=== PATIENT | female | born 1975 | race Two or more races ===

== ENCOUNTER 2018-05-29 06:59 | Emergency (ER) | payer MEDICAID ==
[~2018-05-29] VITALS: Ht 154.9 cm; Wt 64.4 kg
[2018-05-29] MEDS ORDERED: SODIUM CHLORIDE 0.9% 1,000 ML IV ONE (08:47)
[2018-05-29] MEDS ORDERED: METOCLOPRAMIDE HCL 5MG/ml INJ 2ml VIAL IV ONE (09:00)
[2018-05-29] MEDS ORDERED: KETOROLAC TROMETH 30 MG/ML 1ML VIAL IV ONE (09:00)
[2018-05-29 09:09] LABS: Basophils # (auto) 0 uL; Eosinophils # (auto) 0.1 uL; Lymphocytes # (auto) 2.1 uL; Mean Corpuscular Volume 71.3 fL (80.0-100.0); Monocytes # (auto) 0.7 uL; White Blood Cell 8.3 10^3/uL (4.4-10.8)
[2018-05-29 09:11] LABS: Basophils % (auto) 0.5 % (0.0-2.0); Eosinophils % (auto) 1.1 % (0.0-7.0); Hematocrit 29.6 % (36.0-46.0); Hemoglobin 9.4 g/dL (12.2-16.2); Lymphocytes % (auto) 25.9 % (10.0-50.0); Mean Corpuscular Hemoglobin 22.7 pg (28.0-32.0); Mean Corpuscular Hgb Conc. 31.8 g/dL (32.0-36.0); Monocytes % (auto) 8.6 % (0.0-12.0); Neutrophils # (auto) 5.3 uL; Neutrophils % (auto) 63.9 % (37.0-80.0); Nucleated Red Blood Cells % 0.1 %; Platelet Count (auto) 241 10^3/uL (140-450); Red Blood Cells 4.15 10^6/uL (4.0-5.20); Red Cell Distribution Width 16.8 % (11.8-14.3)
[2018-05-29 09:16] LABS: Urine Bacteria FEW /hpf (None Seen); Urine Blood Negative /uL (Negative); Urine Mucus FEW (None Seen); Urine Specific Gravity 1.012 (1.001-1.035); Urine WBC 4 /hpf (0 - 5)
[2018-05-29 09:21] LABS: Albumin 3.6 g/dL (3.4-5.0); Anion Gap 5 (5-15); Blood Urea Nitrogen 8 mg/dL (7-18); Calcium 7.9 mg/dL (8.5-10.1); Carbon Dioxide 24 mmol/L (21-32); Chloride 110 mmol/L (98-107); Glucose 92 mg/dL (74-106); Magnesium 2.3 mg/dL (1.6-2.6); Potassium 3.4 mmol/L (3.5-5.1); Sodium 139 mmol/L (136-145)
[2018-05-29 09:25] LABS: Alanine Aminotransferase 30 U/L (13-56); Alkaline Phosphatase 79 U/L (45-117); Aspartate Aminotransferase 22 U/L (15-37); BUN/Creatinine Ratio 13.6; Bilirubin, Total 0.1 mg/dL (0.2-1.0); GFR African American > 60 mL/min; GFR Non-African American > 60 mL/min; Total Protein 7.6 g/dL (6.4-8.2)
[2018-05-29 09:37] VITALS: BP 158/97
[2018-05-29] MEDS ORDERED: cefTRIAXone 1GM/50ML D5W 50 ML IV ONE (10:15)
[2018-05-29] MEDS ORDERED: POTASSIUM EFFERVESENT TAB 25 MEQ PO ONE (10:15)
[2018-05-29] MEDS ORDERED: cefTRIAXone W LIDOCAINE 1 GM IM IM ONE (11:00)
[2018-05-29] MEDS ORDERED: cefTRIAXone SOD 1,000 MG VL ONE (11:11)
== END 2018-05-29 11:47 | disposition home or self-care (01) ==
LOC: ER 06:59
DX: M94.0 Chondrocostal junction syndrome [Tietze] (principal); N39.0 Urinary tract infection, site not specified; D50.9 Iron deficiency anemia, unspecified; E87.6 Hypokalemia; I10 Essential (primary) hypertension
CPT/HCPCS: 36415; 71046; 80053; 81001; 83735; 84702; 85025; 93005; 96372; 96374; 96375; 99284; J0696; J1885; J2765; J7030

== ENCOUNTER 2019-04-14 08:01 | Inpatient (IN) | payer MEDICAID ==
[~2019-04-14] VITALS: Ht 154.9 cm; Wt 72.3 kg
[2019-04-14] MEDS ORDERED: SODIUM CHLORIDE 0.9% 1,000 ML IV ONE ×2 (09:12)
[2019-04-14 10:37] LABS: Basophils # (auto) 0 uL; Eosinophils # (auto) 0 uL; Hemoglobin 10.5 g/dL (12.2-16.2); Neutrophils # (auto) 15.5 uL; Neutrophils % (auto) 91.6 % (37.0-80.0); White Blood Cell 16.9 10^3/uL (4.4-10.8)
[2019-04-14 10:39] LABS: Basophils % (auto) 0.1 % (0.0-2.0); Hematocrit 32.5 % (36.0-46.0); Lymphocytes # (auto) 0.9 uL; Lymphocytes % (auto) 5.1 % (10.0-50.0); Mean Corpuscular Hemoglobin 23.4 pg (28.0-32.0); Mean Corpuscular Hgb Conc. 32.4 g/dL (32.0-36.0); Mean Corpuscular Volume 72.3 fL (80.0-100.0); Monocytes # (auto) 0.5 uL; Monocytes % (auto) 3.2 % (0.0-12.0); Nucleated Red Blood Cells % 0.1 %; Platelet Count (auto) 270 10^3/uL (140-450); Red Blood Cells 4.49 10^6/uL (4.0-5.20); Red Cell Distribution Width 18.3 % (11.8-14.3)
[2019-04-14 10:48] LABS: Urine Bacteria FEW /hpf (None Seen); Urine Blood Negative /uL (Negative); Urine Specific Gravity 1.013 (1.001-1.035); Urine WBC 10 /hpf (0 - 5)
[2019-04-14 10:52] LABS: Potassium 3.4 mmol/L (3.5-5.1)
[2019-04-14 10:58] LABS: Albumin 3.9 g/dL (3.4-5.0); BUN/Creatinine Ratio 8.8; Bilirubin, Total 0.3 mg/dL (0.2-1.0); Calcium 8.8 mg/dL (8.5-10.1); Total Protein 8.5 g/dL (6.4-8.2)
[2019-04-14] MEDS ORDERED: cefTRIAXone 1GM/50ML D5W 50 ML IV ONE (12:15)
[2019-04-14] MEDS ORDERED: POTASSIUM EFFERVESENT TAB 25 MEQ PO ONE (12:30)
[2019-04-14] MEDS ORDERED: PROMETHAZINE HCL 25 MG/ML 1ML IV PRN (16:45)
[2019-04-14] MEDS ORDERED: ACETAMINOPHEN 500 MG TAB PO PRN (16:45)
[2019-04-14] MEDS ORDERED: TEMAZEPAM 15 MG CAP PO PRN (16:45)
[2019-04-14] MEDS ORDERED: MORPHINE SULFATE 4 MG/ML SYR/VIAL IV PRN (16:45)
[2019-04-14] MEDS ORDERED: traMADol HCL 50 MG TAB PO PRN (16:45)
[2019-04-14 20:30] VITALS: BP 140/83
--- NOTE | 2019-04-14 20:30 | NUR ---
MS admit from [facility] admitted to [facility]. Patient oriented to Florence Navarro RN primary RN, unit, room, bed, and unit policies regarding patient care and visiting hours. Patient weighed by bedscale and encouraged to call if they need something. All questions and concerns addressed, patient verbalized understanding. Note: Patient is tajik speaking, platform attendant at bedside. Alert and oriented x 4, follows direction, no room air with even and unlabored respirations, no s/s of distress. IV intact and patent. patient ambulates with steady gait and turns independently in bed. Patient denies nausea at this time. Bed low locked position with side rails up x 2 and call light within reach. Instructed on POC and to call for assistance PRN. Will continue care.
[2019-04-14] MEDS: SOD CHL 0.9%/ KCL 40MEQ 1,000 ML IV SCH (21:05)
[2019-04-14] MEDS: FAMOTIDINE (10MG/ML) 2ML VL IV SCH (21:35)
[2019-04-14 22:00] VITALS: BP 156/85
[2019-04-15] MEDS: SOD CHL 0.9%/ KCL 40MEQ 1,000 ML IV SCH ×2 (01:05→13:04)
[2019-04-15] MEDS: FAMOTIDINE (10MG/ML) 2ML VL IV SCH (04:27)
[2019-04-15 05:29] VITALS: BP 150/88
[2019-04-15 05:52] LABS: Eosinophils # (auto) 0.1 uL; Hemoglobin 9.6 g/dL (12.2-16.2); Mean Corpuscular Hemoglobin 23.4 pg (28.0-32.0); Mean Corpuscular Hgb Conc. 32.1 g/dL (32.0-36.0); Mean Corpuscular Volume 72.8 fL (80.0-100.0); Red Blood Cells 4.13 10^6/uL (4.0-5.20)
[2019-04-15 05:59] LABS: Basophils # (auto) 0.1 uL; Basophils % (auto) 0.4 % (0.0-2.0); Eosinophils % (auto) 0.6 % (0.0-7.0); Lymphocytes # (auto) 1.7 uL; Lymphocytes % (auto) 12.4 % (10.0-50.0); Monocytes # (auto) 1.2 uL; Monocytes % (auto) 8.3 % (0.0-12.0); Neutrophils % (auto) 78.3 % (37.0-80.0); Platelet Count (auto) 249 10^3/uL (140-450); Red Cell Distribution Width 18.1 % (11.8-14.3)
[2019-04-15 06:05] LABS: Albumin 3.5 g/dL (3.4-5.0); Calcium 8.1 mg/dL (8.5-10.1); Potassium 3.5 mmol/L (3.5-5.1)
[2019-04-15 06:10] LABS: BUN/Creatinine Ratio 18.6; Bilirubin, Total 0.3 mg/dL (0.2-1.0); Total Protein 7.2 g/dL (6.4-8.2)
--- NOTE | 2019-04-15 06:53 | NUR ---
Closing Note patient resting in bed with even and unlabored respirations, no s/s of distress. Bed low locked position with side rails up x 2 and call light within reach, sitter at bedside. Seizure precautions in place. Addendum: 04/15/19 at 0654 by Florence Navarro RN RN no sitter, no seizure precautions
--- NOTE | 2019-04-15 08:15 | NUR ---
Opening Shift Note Assumed care of patient, awake, alert, and oriented. No S/S of distress/SOB or pain. Bed in lowest/locked position, bed rails up x2, call light within reach. Instructed on POC and to call for assist PRN. Will continue to monitor for changes Q1hr and PRN.
[2019-04-15 09:00] VITALS: BP 155/81
[2019-04-15] MEDS ORDERED: cefTRIAXone 1GM/50ML D5W 50 ML IV SCH (09:00)
[2019-04-15] MEDS ORDERED: DOXY-299 PO (14:46)
[2019-04-15] MEDS ORDERED: LEVO500T21 PO (14:46)
[2019-04-15] MEDS ORDERED: AML5T PO (14:46)
[2019-04-15] MEDS ORDERED: LOSA-69 PO (14:46)
--- NOTE | 2019-04-15 17:10 | NUR ---
Discharge instructions given as ordered. Encourage to follow up with PMD as instructed. All questions and concerns addressed. Patient verbalized understanding. IV removed with catheter intact, pressure dressing applied. Patient taken to vehicle via wheelchair with all personal belongings, accompanied by staff and family member. No distress noted at time of departure.
[2019-04-16] MEDS ORDERED: PANTOPRAZOLE 40 MG TAB PO SCH (10:00)
== END 2019-04-15 17:10 | disposition home or self-care (01) | DRG 720 ==
LOC: ER 08:02 → OVERFLOW 08:03 → WEST WING 20:10
PROVIDERS: ADMIT Internal Medicine; ATTEND Internal Medicine Nephrology
DX: A41.9 Sepsis, unspecified organism (principal); N12 Tubulo-interstitial nephritis, not specified as acute or chronic; E87.6 Hypokalemia; N83.201 Unspecified ovarian cyst, right side; E66.3 Overweight; I10 Essential (primary) hypertension; Z68.30 Body mass index [BMI] 30.0-30.9, adult
CPT/HCPCS: 36415; 74176; 76705; 76856; 80053; 81001; 81025; 82150; 83690; 85025; 87086; 96361; 96374; G0378; J0696; J3490

== ENCOUNTER 2019-12-17 03:53 | Emergency (ER) | payer MEDICAID ==
[~2019-12-17] VITALS: Ht 165.1 cm; Wt 77.1 kg
[~2019-12-17 03:53] MED LIST: AML5T PO; DOXY-340 PO; LEVO500T21 PO; LOSA-69 PO
[2019-12-17] MEDS ORDERED: SODIUM CHLORIDE 0.9% 1,000 ML IV ONE (07:03)
[2019-12-17] MEDS ORDERED: SODIUM CHLORIDE 0.9% 500 ML IVB ONE (07:03)
[2019-12-17] MEDS ORDERED: KETOROLAC TROMETH 30 MG/ML 1ML VIAL IV ONE (07:15)
[2019-12-17] MEDS ORDERED: PROMETHAZINE HCL 25 MG/ML 1ML IV PRN (07:15)
[2019-12-17 07:31] LABS: Basophils # (auto) 0 10 ^3/uL (0-0.2); Eosinophils # (auto) 0 10 ^3/uL (0-0.8); Hematocrit 28.9 % (36.0-46.0); Hemoglobin 9.1 g/dL (12.2-16.2); Lymphocytes # (auto) 0.6 10 ^3/uL (0.4-5.4); Mean Corpuscular Hemoglobin 20.9 pg (28.0-32.0); Neutrophils # (auto) 6.8 10 ^3/uL (1.6-8.6); White Blood Cell 7.9 10^3/uL (4.4-10.8)
[2019-12-17 07:33] LABS: Basophils % (auto) 0.3 % (0.0-2.0); Lymphocytes % (auto) 7.3 % (10.0-50.0); Mean Corpuscular Hgb Conc. 31.3 g/dL (32.0-36.0); Mean Corpuscular Volume 66.9 fL (80.0-100.0); Monocytes # (auto) 0.4 10 ^3/uL (0-1.3); Monocytes % (auto) 5.5 % (0.0-12.0); Neutrophils % (auto) 86.9 % (37.0-80.0); Platelet Count (auto) 220 10^3/uL (140-450); Red Blood Cells 4.32 10^6/uL (4.0-5.20)
[2019-12-17 07:51] LABS: Albumin 3.8 g/dL (3.4-5.0); Calcium 8.1 mg/dL (8.5-10.1); Magnesium 2.3 mg/dL (1.6-2.6)
[2019-12-17 07:55] LABS: BUN/Creatinine Ratio 8.7; Bilirubin, Total 0.3 mg/dL (0.2-1.0); Total Protein 8.1 g/dL (6.4-8.2)
[2019-12-17] MEDS ORDERED: POTASSIUM EFFERVESENT TAB 25 MEQ PO ONE (09:15)
[2019-12-17 09:51] LABS: Urine Bacteria FEW /hpf (None Seen); Urine Blood 2+ /uL (Negative); Urine Mucus FEW (None Seen); Urine Specific Gravity 1.016 (1.001-1.035); Urine WBC 5 /hpf (0 - 5)
[2019-12-17 10:18] VITALS: BP 134/81
[2019-12-17] MEDS ORDERED: cefTRIAXone 1GM/50ML D5W 50 ML IV ONE (10:45)
== END 2019-12-17 11:58 | disposition home or self-care (01) ==
LOC: ER 03:53 → EDBD 03:53 → ER 11:58
DX: N39.0 Urinary tract infection, site not specified (principal); I10 Essential (primary) hypertension; E87.6 Hypokalemia; R74.8 Abnormal levels of other serum enzymes; D64.9 Anemia, unspecified
CPT/HCPCS: 36415; 76705; 80053; 81001; 83690; 83735; 84702; 85025; 93005; 96361; 96365; 96375; 99285; J0696; J1885; J7030; J7040

== ENCOUNTER 2019-12-22 04:10 | Inpatient (IN) | payer MEDICAID ==
[~2019-12-22] VITALS: Ht 160 cm; Wt 72.4 kg
[2019-12-22] MEDS ORDERED: DOXYCYCLINE 100MG/250ML 250 ML IV ONE (07:00)
[2019-12-22] MEDS ORDERED: DexAMETHasone SOD PHOS 10MG/1ML VIAL INJ IV ONE (07:00)
[2019-12-22 07:13] LABS: Basophils # (auto) 0 10 ^3/uL (0-0.2); Eosinophils # (auto) 0 10 ^3/uL (0-0.8); Monocytes # (auto) 0.5 10 ^3/uL (0-1.3); Neutrophils # (auto) 7.3 10 ^3/uL (1.6-8.6); Red Blood Cells 4.27 10^6/uL (4.0-5.20)
[2019-12-22 07:16] LABS: Basophils % (auto) 0.3 % (0.0-2.0); Hematocrit 28.1 % (36.0-46.0); Hemoglobin 8.8 g/dL (12.2-16.2); Lymphocytes # (auto) 1.2 10 ^3/uL (0.4-5.4); Lymphocytes % (auto) 13.6 % (10.0-50.0); Mean Corpuscular Hemoglobin 20.7 pg (28.0-32.0); Mean Corpuscular Hgb Conc. 31.5 g/dL (32.0-36.0); Mean Corpuscular Volume 65.9 fL (80.0-100.0); Monocytes % (auto) 5.4 % (0.0-12.0); Neutrophils % (auto) 80.7 % (37.0-80.0); Platelet Count (auto) 214 10^3/uL (140-450); Red Cell Distribution Width 18.6 % (11.8-14.3)
[2019-12-22 07:29] LABS: INR 1.01 (0.9-1.15); Partial Thromboplastin Time 26.9 sec (23.0-31.2)
[2019-12-22 07:31] LABS: Albumin 3.3 g/dL (3.4-5.0); Anion Gap 8 (5-15); Calcium 8.1 mg/dL (8.5-10.1); Carbon Dioxide 27 mmol/L (21-32); Chloride 101 mmol/L (98-107); GFR African American 88 mL/min; GFR Non-African American 73 mL/min; Glucose 94 mg/dL (74-106); Lipase 196 U/L (73-393); Sodium 136 mmol/L (136-145)
[2019-12-22 07:32] LABS: Alanine Aminotransferase 31 U/L (13-56); Aspartate Aminotransferase 30 U/L (15-37); BUN/Creatinine Ratio 15.7; Bilirubin, Total 0.1 mg/dL (0.2-1.0); Blood Urea Nitrogen 14 mg/dL (7-18); Total Protein 8.2 g/dL (6.4-8.2)
[2019-12-22 07:36] LABS: Alkaline Phosphatase 60 U/L (45-117)
[2019-12-22 07:39] LABS: Potassium 2.7 mmol/L (3.5-5.1)
[2019-12-22 07:46] LABS: CRP High Sensitivity 12.6 mg/dL (< 0.3)
[2019-12-22] MEDS: POTASSIUM CHL 20MEQ/100ML 100 ML IV SCH ×5 (08:19→18:54)
[2019-12-22] MEDS: SOD CHL 0.9%/ KCL 40MEQ 1,000 ML IV SCH ×3 (09:45→19:45)
[2019-12-22] MEDS ORDERED: POTASSIUM EFFERVESENT TAB 25 MEQ PO ONE (09:45)
[2019-12-22] MEDS ORDERED: levoFLOXacin 500MG 100 ML IV ONE (09:45)
[2019-12-22] MEDS ORDERED: NITROGLYCERIN 0.4 MG SL TAB SL PRN (09:45)
[2019-12-22] MEDS ORDERED: LACTULOSE 20Gm/30ML SOLN PO PRN (09:45)
[2019-12-22] MEDS ORDERED: ALBUTEROL SULF 2.5 MG/0.5ML(0.5%) NEB SOLN NEB PRN (09:45)
[2019-12-22] MEDS ORDERED: TEMAZEPAM 15 MG CAP PO PRN (09:45)
[2019-12-22] MEDS ORDERED: MORPHINE SULF INJ 2 MG/ML SYRINGE 1ML IV PRN (09:45)
[2019-12-22] MEDS ORDERED: cefTRIAXone 1GM/50ML D5W 50 ML IV ONE (09:45)
[2019-12-22] MEDS: levoFLOXacin 500MG 100 ML IV SCH ×2 (10:00→13:23)
[2019-12-22 10:05] LABS: Amylase 55 U/L (25-115); Lipase 200 U/L (73-393)
[2019-12-22] MEDS: FAMOTIDINE (10MG/ML) 2ML VL IV SCH ×2 (11:19→21:53)
[2019-12-22] MEDS: ACETAMINOPHEN 500 MG TAB PO PRN (11:20)
[2019-12-22] MEDS: ENOXAPARIN SOD 40 MG/0.4 ML SYRINGE SC SCH (11:21)
--- NOTE | 2019-12-22 12:40 | NUR ---
Telemetry admit from [facility] admitted to Telemetry unit after SBAR received. Patient oriented to Meli Hernandez, primary RN, unit, room, bed, and unit policies regarding patient care and visiting hours. Patient now on continuous telemetry monitoring, tele box # 8 and telemetry reading on arrival to unit is . Patient placed on bedside oxygen, weighed by bedscale and encouraged to call if they need something. All questions and concerns addressed, patient verbalized understanding. Note:
--- NOTE | 2019-12-22 12:45 | NUR ---
PT ARRIVED FROM ER VIA [facility] TO EAT WING , THEN ASSISTED PT TO THE WHEEL CHAIR, PT IS OBESE, WEAK, OXYGEN 2 L NC, ARRIVED TO ROOM 237, DENIES PAIN OR SHORTNESS OF BREATH, ABLE TO VERBALIS HER NEEDS AND SELF REPOSITION, ROOM ORIENTAION GIVEN TO PT, CALL LIGHT WITHIN REACH
[2019-12-22 13:00] VITALS: BP 119/67
--- NOTE | 2019-12-22 13:00 | NUR ---
PAGE DR GONZALEZ TO VERIFY K RIDER IV AND OBTAIN A DIET ORDER
--- NOTE | 2019-12-22 13:44 | NUR ---
URINE SAMPLE SENT TO LAB
[2019-12-22] MEDS ORDERED: CIPR-173 PO (13:45)
[2019-12-22] MEDS ORDERED: ONDA-144 PO (13:45)
[2019-12-22] MEDS ORDERED: VALS160T53 PO (13:45)
--- NOTE | 2019-12-22 14:00 | NUR ---
INCENTIVE SPIROMETER EDUCATED PT HOW TO USE THE IS MACHINE, EXPLAIN WHY, PT VERBALIS UNDERSTANDING, DEMONSTRATED BACK
[2019-12-22 14:05] LABS: Urine Bacteria NONE SEEN /hpf (None Seen); Urine Blood Negative /uL (Negative); Urine Specific Gravity 1.005 (1.001-1.035); Urine WBC <1 /hpf (0 - 5)
[2019-12-22] MEDS: metroNIDAZOLE 500MG/100ML 100 ML IV SCH ×2 (14:26→23:00)
--- NOTE | 2019-12-22 16:43 | NUR ---
PAGE DR GONZALEZ TO OBTAIN DIET ORDER
--- NOTE | 2019-12-22 17:06 | NUR ---
DR GONZALEZ CALLED BACK WITH CLEAR LIQUID DIET ORDER
[2019-12-22] MEDS: PROMETHAZINE HCL 25 MG/ML 1ML IV PRN (18:09)
[2019-12-22] MEDS ORDERED: POTASSIUM CHL 20MEQ/100ML 100 ML IV SCH (18:45)
--- NOTE | 2019-12-22 18:50 | NUR ---
PT CONTINUE STABLE, CONTINUE MONITORING
--- NOTE | 2019-12-22 19:30 | NUR ---
Opening Shift Note Assumed care of patient, awake and alert x4. Patient denies pain or shortness of breath at this time. No sign/symptoms of distress noted or verbalized at this time. Instructed on plan of care and encouraged patient to call for assistance as needed, patient verbalized understanding. Incentive spirometer noted at the bedside, encouraged patient to use incentive spirometer at least 10 times every hour while awake, patient verbalized understanding, patient able to raise marker to 500ml. Bed is locked in lowest position, side rails x 2 are up, and call light is within reach.
[2019-12-22 20:22] VITALS: BP 119/67
[2019-12-22 22:00] VITALS: BP 140/82
[2019-12-22] MEDS: ALBUTEROL SULF HFA 90MCG INH 200DOSE IN SCH (22:13)
[2019-12-22] MEDS: BUDESONIDE (INHALATION) 180 MCG IH IN SCH (22:14)
[2019-12-23] MEDS: SOD CHL 0.9%/ KCL 40MEQ 1,000 ML IV SCH
[2019-12-23 05:00] VITALS: BP 131/81
[2019-12-23] MEDS: metroNIDAZOLE 500MG/100ML 100 ML IV SCH ×2 (06:19→13:31)
[2019-12-23] MEDS: ALBUTEROL SULF HFA 90MCG INH 200DOSE IN SCH ×3 (06:59→21:27)
[2019-12-23] MEDS: BUDESONIDE (INHALATION) 180 MCG IH IN SCH ×2 (06:59→21:27)
[2019-12-23 07:26] LABS: Basophils # (auto) 0.1 10 ^3/uL (0-0.2); Eosinophils # (auto) 0 10 ^3/uL (0-0.8); Hemoglobin 8.1 g/dL (12.2-16.2); Mean Corpuscular Hgb Conc. 30.8 g/dL (32.0-36.0); Platelet Count (auto) 222 10^3/uL (140-450)
[2019-12-23 07:29] LABS: Basophils % (auto) 0.4 % (0.0-2.0); Hematocrit 26.1 % (36.0-46.0); Lymphocytes # (auto) 0.8 10 ^3/uL (0.4-5.4); Lymphocytes % (auto) 5.8 % (10.0-50.0); Mean Corpuscular Hemoglobin 20.5 pg (28.0-32.0); Mean Corpuscular Volume 66.5 fL (80.0-100.0); Monocytes # (auto) 0.7 10 ^3/uL (0-1.3); Monocytes % (auto) 4.6 % (0.0-12.0); Neutrophils # (auto) 12.7 10 ^3/uL (1.6-8.6); Neutrophils % (auto) 89.2 % (37.0-80.0); Red Blood Cells 3.93 10^6/uL (4.0-5.20); Red Cell Distribution Width 18.3 % (11.8-14.3); White Blood Cell 14.3 10^3/uL (4.4-10.8)
[2019-12-23 07:52] LABS: Albumin 2.9 g/dL (3.4-5.0); BUN/Creatinine Ratio 16.4; Calcium 7.9 mg/dL (8.5-10.1); Potassium 4.2 mmol/L (3.5-5.1)
[2019-12-23 08:04] LABS: Bilirubin, Total 0.2 mg/dL (0.2-1.0); Total Protein 7.4 g/dL (6.4-8.2)
--- NOTE | 2019-12-23 08:07 | NUR ---
OPENING SHIFT NOTE Assumed care of patient. Patient is awake and alert. No S/S of distress or SOB. Pt is laying in bed, on 2L O2. Bed locked, in lowest position, call light within reach, side rails up x2, bed alarm on for safety. Will continue to monitor for changes Q1hr and PRN.
[2019-12-23 09:10] VITALS: BP 127/85
[2019-12-23] MEDS: ASCORBIC ACID 1,000 MG TAB PO SCH (09:19)
[2019-12-23] MEDS: FAMOTIDINE (10MG/ML) 2ML VL IV SCH ×2 (09:19→21:01)
[2019-12-23] MEDS: ZINC SULFATE 220mg CAP or TAB PO SCH (09:19)
[2019-12-23] MEDS: ENOXAPARIN SOD 40 MG/0.4 ML SYRINGE SC SCH (09:19)
[2019-12-23] MEDS: CHOLECALCIFEROL (VITD3) 2,000 UNIT CAP PO SCH (09:20)
[2019-12-23] MEDS: DexAMETHasone SOD PHOS 10MG/1ML VIAL INJ IV SCH (09:21)
[2019-12-23] MEDS ORDERED: ENOXAPARIN SOD 40 MG/0.4 ML SYRINGE SC SCH (10:00)
[2019-12-23] MEDS: ACETAMINOPHEN 500 MG TAB PO PRN (12:00)
[2019-12-23 13:15] VITALS: BP 144/68
[2019-12-23 16:52] VITALS: BP_SYST 148
--- NOTE | 2019-12-23 18:00 | NUR ---
PT'S WEIGHT IS 160.0 LB PER BEDSCALE
[2019-12-23] MEDS: FERROUS SULFATE 325 MG TAB PO SCH (18:31)
[2019-12-23] MEDS: levoFLOXacin 250 MG TAB PO SCH (18:31)
--- NOTE | 2019-12-23 20:00 | NUR ---
Opening Shift Note Assumed care of patient, awake and alert x4. Patient denies pain or shortness of breath at this time. No sign/symptoms of distress noted or verbalized at this time. Instructed patient on plan of care and encouraged patient to call for assistance as needed, patient verbalized understanding. Incentive spirometer noted at the bedside. Encouraged patient to use incentive spirometer at least 10 times while awake, patient verbalized understanding and returned demonstration. Patient able to raise marker to 1000ml. Bed is locked in lowest position, side rails x 2 are up, and call light is within reach. Addendum: 12/23/19 at 2022 by TASHIA SCHILLING RN RN Correction: Patient able to raise marker to 500ml.
[2019-12-23 22:00] VITALS: BP 142/83
[2019-12-24 05:00] VITALS: BP 151/71
[2019-12-24] MEDS: ALBUTEROL SULF HFA 90MCG INH 200DOSE IN SCH ×3 (06:52→22:00)
[2019-12-24] MEDS: BUDESONIDE (INHALATION) 180 MCG IH IN SCH ×2 (06:52→22:00)
--- NOTE | 2019-12-24 08:06 | NUR ---
OPENING SHIFT NOTE Resumed care of patient. Patient is awake and A&OX4. No S/S of distress or SOB. Pt is eating breakfast comfortably in bed. PT is on 2L O2 and reports increased dependence on O2 during exertion. Bed locked, in lowest position, call light within reach, side rails up x2, bed alarm on for safety. Will continue to monitor for changes Q1hr and PRN.
[2019-12-24 08:47] VITALS: BP 136/73
[2019-12-24] MEDS: ENOXAPARIN SOD 40 MG/0.4 ML SYRINGE SC SCH (08:58)
[2019-12-24] MEDS: CHOLECALCIFEROL (VITD3) 2,000 UNIT CAP PO SCH (08:59)
[2019-12-24] MEDS: ZINC SULFATE 220mg CAP or TAB PO SCH (08:59)
[2019-12-24] MEDS: ASCORBIC ACID 1,000 MG TAB PO SCH (08:59)
[2019-12-24] MEDS: FERROUS SULFATE 325 MG TAB PO SCH ×2 (08:59→12:23)
[2019-12-24] MEDS: FAMOTIDINE (10MG/ML) 2ML VL IV SCH ×2 (09:00→23:07)
[2019-12-24] MEDS: DexAMETHasone SOD PHOS 10MG/1ML VIAL INJ IV SCH (09:00)
[2019-12-24] MEDS: levoFLOXacin 250 MG TAB PO SCH (09:06)
[2019-12-24] MEDS: PROMETHAZINE HCL 25 MG/ML 1ML IV PRN (09:27)
--- NOTE | 2019-12-24 11:11 | NUR ---
Est energy needs 4526-9269 kcal (20-25 kcal/kg BW 72.4kg) Est protein needs 58-72g (0.8-1g/kg BW 72.4k) Will reassess prn Addendum: 12/24/19 at [address] Amended: Links added.
[2019-12-24 12:56] VITALS: BP 146/87
[2019-12-24 16:47] VITALS: BP 135/72
[2019-12-24 22:00] VITALS: BP 128/76
[2019-12-25 05:00] VITALS: BP 136/77
[2019-12-25 05:44] LABS: Hemoglobin 8.3 g/dL (12.2-16.2); Mean Corpuscular Hemoglobin 20.9 pg (28.0-32.0); Platelet Count (auto) 249 10^3/uL (140-450); White Blood Cell 11.6 10^3/uL (4.4-10.8)
[2019-12-25 05:48] LABS: Hematocrit 26.6 % (36.0-46.0); Mean Corpuscular Hgb Conc. 31.1 g/dL (32.0-36.0); Red Blood Cells 3.98 10^6/uL (4.0-5.20)
[2019-12-25 06:10] LABS: Band Neutrophils % (manual) 0; Basophils % (manual) 0 (0.0-2.0); Blast Cells 0; Eosinophils % (manual) 0 (0-7); Metamyelocytes % 0; Myelocytes % 0; Promyelocytes % 0; Reactive Lymphocytes 0
[2019-12-25 06:27] LABS: Albumin 2.8 g/dL (3.4-5.0); Calcium 8.3 mg/dL (8.5-10.1); Potassium 3.5 mmol/L (3.5-5.1)
[2019-12-25] MEDS: ALBUTEROL SULF HFA 90MCG INH 200DOSE IN SCH ×3 (06:30→22:40)
[2019-12-25] MEDS: BUDESONIDE (INHALATION) 180 MCG IH IN SCH ×2 (06:30→22:41)
[2019-12-25 06:33] LABS: BUN/Creatinine Ratio 31.8; Bilirubin, Total 0.2 mg/dL (0.2-1.0); CRP High Sensitivity 1.48 mg/dL (< 0.3)
[2019-12-25 06:38] LABS: Lymphocytes % (manual) 18 (10.0-50.0); Monocytes % (manual) 7 (0-12)
--- NOTE | 2019-12-25 08:35 | NUR ---
OPENING SHIFT NOTE Resumed care of patient. Patient is awake and A&OX4. PT is on 2L O2. No S/S of distress or SOB. Bed locked, in lowest position, call light within reach, side rails up x2, bed alarm on for safety. Will continue to monitor for changes Q1hr and PRN.
[2019-12-25 08:53] VITALS: BP 159/65
[2019-12-25] MEDS: FAMOTIDINE (10MG/ML) 2ML VL IV SCH ×2 (09:15→21:34)
[2019-12-25] MEDS: ASCORBIC ACID 1,000 MG TAB PO SCH (09:16)
[2019-12-25] MEDS: ZINC SULFATE 220mg CAP or TAB PO SCH (09:16)
[2019-12-25] MEDS: ENOXAPARIN SOD 40 MG/0.4 ML SYRINGE SC SCH (09:16)
[2019-12-25] MEDS: CHOLECALCIFEROL (VITD3) 2,000 UNIT CAP PO SCH (09:16)
[2019-12-25] MEDS: levoFLOXacin 250 MG TAB PO SCH (09:16)
[2019-12-25] MEDS: DexAMETHasone SOD PHOS 10MG/1ML VIAL INJ IV SCH (09:17)
[2019-12-25 11:30] VITALS: BP 148/75
[2019-12-25] MEDS ORDERED: AZITHROMYCIN 250 MG TAB PO ONE (15:45)
[2019-12-25] MEDS ORDERED: HCTZ 25 MG TAB PO ONE (15:45)
[2019-12-25 17:06] VITALS: BP 125/77
[2019-12-25 19:13] VITALS: BP 125/77
--- NOTE | 2019-12-25 19:30 | NUR ---
Opening Shift Note Assumed care of patient, awake and alert x4. Patient denies pain or shortness of breath at this time. No sign/symptoms of distress noted or verbalized at this time. Instructed on plan of care and encouraged patient to call for assistance as needed, patient verbalized understanding. Incentive spirometer noted at the bedside, encouraged patient to use incentive spirometer at least 10 times every hour while awake, patient verbalized understanding. Bed is locked in lowest position, side rails x 2 are up, and call light is within reach.
[2019-12-25 21:57] VITALS: BP 125/73
[2019-12-26 05:00] VITALS: BP 127/58
[2019-12-26] MEDS: BUDESONIDE (INHALATION) 180 MCG IH IN SCH ×2 (06:46→21:56)
[2019-12-26] MEDS: ALBUTEROL SULF HFA 90MCG INH 200DOSE IN SCH ×3 (06:46→21:56)
--- NOTE | 2019-12-26 07:35 | NUR ---
OPENING SHIFT NOTE Resumed care of patient. Patient is awake and A&OX4. PT is on 1L O2. No S/S of distress or SOB. PT is C/O pain to her right calf. Will report to MD. Bed locked, in lowest position, call light within reach, side rails up x2, bed alarm on for safety. Will continue to monitor for changes Q1hr and PRN.
[2019-12-26] MEDS: ACETAMINOPHEN 500 MG TAB PO PRN (08:34)
[2019-12-26 09:00] VITALS: BP 141/81
[2019-12-26] MEDS: DexAMETHasone SOD PHOS 10MG/1ML VIAL INJ IV SCH (09:08)
[2019-12-26] MEDS: FAMOTIDINE (10MG/ML) 2ML VL IV SCH ×2 (09:08→22:06)
[2019-12-26] MEDS: AZITHROMYCIN 250 MG TAB PO SCH (09:09)
[2019-12-26] MEDS: ASCORBIC ACID 1,000 MG TAB PO SCH (09:09)
[2019-12-26] MEDS: ENOXAPARIN SOD 40 MG/0.4 ML SYRINGE SC SCH (09:09)
[2019-12-26] MEDS: CHOLECALCIFEROL (VITD3) 2,000 UNIT CAP PO SCH (09:10)
[2019-12-26] MEDS: ZINC SULFATE 220mg CAP or TAB PO SCH (09:10)
[2019-12-26] MEDS: HCTZ 25 MG TAB PO SCH (09:10)
--- NOTE | 2019-12-26 11:23 | NUR ---
ss consult Per ss consult no PCP, no insurance. Patient does have insurance, she has medi-[facility]. Yani Honeycutt to see patient today for PCP. Addendum: 12/26/19 at 1127 by Yani SILVA Amended: Links added.
--- NOTE | 2019-12-26 12:32 | NUR ---
Nutrition Followup Notes Wt: 72.4 kg Unable to talk to pt as pt is COVID +ve. pt with no distress noted per nursing. pt is currently on regular diet with adequate PO 100% x 4 per RN doc Est energy needs 2819-4791 kcal (20-25 kcal/kg BW 72.4kg) Est protein needs 58-72g (0.8-1g/kg BW 72.4k) Will reassess prn LABS: CA 8.3 L, ALB 2.8 L GI: Pt has no BM reported constipated per RN doc BS: 20 low risk Refer to wound assessment report for full details. PES: Overweight aeb pt with a BMI of 28.3kg/m2 r/t caloric intake in excess of needs Comments: Will continue to monitor PO status, skin status, pertinent labs and weight trends. Will f/u in 3-5 days. Rec: 1) continue current plan of care
[2019-12-26 13:00] VITALS: BP 142/86
[2019-12-26] MEDS ORDERED: FUROSEMIDE 20 MG/2 ML VIAL IV ONE (13:00)
[2019-12-26 17:00] VITALS: BP 126/82
[2019-12-26] MEDS ORDERED: cefTRIAXone 1GM/50ML D5W 50 ML IV ONE (18:45)
[2019-12-26 22:20] VITALS: BP 109/71
[2019-12-27 05:13] VITALS: BP 133/73
[2019-12-27] MEDS: SUCRALFATE 1 GM/10 ML ORAL SUSP PO SCH ×3 (06:40→17:37)
[2019-12-27] MEDS: ALBUTEROL SULF HFA 90MCG INH 200DOSE IN SCH ×2 (08:14→15:03)
[2019-12-27] MEDS: BUDESONIDE (INHALATION) 180 MCG IH IN SCH (08:14)
[2019-12-27] MEDS ORDERED: cefTRIAXone 1GM/50ML D5W 50 ML IV SCH (09:00)
[2019-12-27] MEDS: DexAMETHasone SOD PHOS 10MG/1ML VIAL INJ IV SCH (10:04)
[2019-12-27] MEDS: FAMOTIDINE (10MG/ML) 2ML VL IV SCH (10:04)
[2019-12-27] MEDS: CHOLECALCIFEROL (VITD3) 2,000 UNIT CAP PO SCH (10:05)
[2019-12-27] MEDS: ZINC SULFATE 220mg CAP or TAB PO SCH (10:05)
[2019-12-27] MEDS: AZITHROMYCIN 250 MG TAB PO SCH (10:05)
[2019-12-27] MEDS: ASCORBIC ACID 1,000 MG TAB PO SCH (10:05)
[2019-12-27] MEDS: HCTZ 25 MG TAB PO SCH (10:06)
[2019-12-27] MEDS: ENOXAPARIN SOD 40 MG/0.4 ML SYRINGE SC SCH (10:06)
[2019-12-27 13:00] VITALS: BP 107/65
[2019-12-27] MEDS ORDERED: CHOL1CAP47 PO (15:53)
[2019-12-27] MEDS ORDERED: AZIT250T9 PO (15:53)
[2019-12-27] MEDS ORDERED: AMLO10TA13 PO (15:53)
[2019-12-27] MEDS ORDERED: METH4PAK PO (15:57)
[2019-12-27] MEDS ORDERED: FERR-7 PO (15:58)
[2019-12-27 17:00] VITALS: BP 110/69
--- NOTE | 2019-12-27 18:50 | NUR ---
Discharge instructions given as ordered. Encourage to follow up with PMD as instructed.Covid -19 education given. All questions and concerns addressed. Patient verbalized understanding. Medication reconciliation form completed and copy given to patient. IV removed with catheter intact, pressure dressing applied. Telemetry unit returned to ICU. Patient has prescribed medication in hands. Patient is resting in bed waiting for transportation from family to arrive.
--- NOTE | 2019-12-27 19:35 | NUR ---
Patient taken to vehicle via wheelchair with all personal belongings, accompanied by staff and security. No distress noted at time of departure.
== END 2019-12-27 19:35 | disposition home or self-care (01) | DRG 720 ==
LOC: ER 04:11 → TELE 04:12 → TELE-EAST 13:18
PROVIDERS: ADMIT Internal Medicine; ATTEND Internal Medicine Nephrology
DX: A41.89 Other specified sepsis (principal); R65.20 Severe sepsis without septic shock; J96.01 Acute respiratory failure with hypoxia; U07.1 COVID-19; J12.89 Other viral pneumonia; N84.0 Polyp of corpus uteri; N83.209 Unspecified ovarian cyst, unspecified side; D64.9 Anemia, unspecified; E87.6 Hypokalemia; E44.1 Mild protein-calorie malnutrition; K59.00 Constipation, unspecified; K29.70 Gastritis, unspecified, without bleeding; I10 Essential (primary) hypertension
CPT/HCPCS: 36415; 71045; 74176; 76705; 76830; 76856; 80053; 81001; 82150; 82728; 83036; 83540; 83550; 83605; 83615; 83690; 83880; 84484; 84702; 85007; 85025; 85027; 85610; 85730; 86141; 87040; 87070; 87086; 87426; 87804; 87880; 93970; 94640; G0378; J0696; J1100; J1956; J3480; J3490